=== PATIENT | male | born 1980 | race American Indian/Alaskan Native ===

== ENCOUNTER 2017-10-11 08:44 | Day surgery (SDC) | payer OTHER ==
[~2017-10-11 08:44] MED LIST: ANCEF/STERILE WATER 2 GM/20 ML IV NR; LACTATED RINGERS 1,000 ML IV SCH; VERSED IV NR
[2017-10-11] MEDS ORDERED: LACTATED RINGERS 1,000 ML IV SCH (10:00)
[2017-10-11] MEDS ORDERED: ZOFRAN IV PRN (10:00)
--- NOTE | 2017-10-11 10:01 | Anesthesia Consultation ---
Anesthesia Consult and Med Hx Date of service: 10/11/17 - Airway Anesthetic Teeth Evaluation: Good ROM Head & Neck: Adequate Mental/Hyoid Distance: Adequate Mallampati Class: Class I Intubation Access Assessment: Good - Pulmonary Exam CTA: Yes - Cardiac Exam Cardiac Exam: RRR - Pre-Operative Health Status ASA Pre-Surgery Classification: ASA2 Proposed Anesthetic Plan: General - Pulmonary Hx Smoking: Yes ([employer]IAL SMOK[employer] AND VAPS) Hx Sleep Apnea: No (NAM PRE SCREEN LOW RISK) - Cardiovascular System Hx Hypertension: No - Hematic Hx Anemia: Yes (NOT RECENT) - Other Systems Hx Cancer: No
--- NOTE | 2017-10-11 10:01 | Anesthesia Day of Surgery ---
Anesthesia Day of Surgery - Day of Surgery Patient Examined: Yes Patient H&P Reviewed: Yes Patient is NPO: Yes
[2017-10-11] MEDS ORDERED: DILAUDID ONE (10:52)
[2017-10-11] MEDS ORDERED: DIPRIVAN 10 MG/ML IV ONE (10:52)
[2017-10-11] MEDS ORDERED: XYLOCAINE MPF 2% ONE (10:53)
[2017-10-11] MEDS ORDERED: VERSED ONE (11:13)
[2017-10-11] MEDS ORDERED: ZOFRAN ONE (11:54)
--- NOTE | 2017-10-11 12:07 | Short Stay Summary ---
Short Stay Documentation Date of service: 10/11/17 - History H&P: obtained from office - Allergies and Medications Current Medications: Allergies No Known Allergies Allergy (Verified 10/04/17 11:08) Home Medications Medication Instructions Recorded Confirmed Last Taken Type Aspirin/Acetaminophen/Caffeine 1 each PO PRN PRN 10/04/17 10/11/17 09/30/17 History [Goody's Ex-Str Powder Packet] Emtricitabine/Tenofovir (Tdf) 1 tab PO PRN PRN 10/04/17 10/11/17 09/27/17 History [Truvada 100 mg-150 mg Tablet] Valacyclovir HCl [Valtrex] 1,000 mg PO PRN PRN 10/04/17 10/11/17 10/08/17 History Active Medications Cefazolin Sodium (Ancef/Sterile Water 2 Gm/20 Ml) 2 gm IV PREOP NR Stop: 10/11/17 23:59 Hydromorphone HCl (Dilaudid) 0.5 mg IV Q10MIN PRN PRN Reason: Pain , Severe (7-10) Stop: 10/11/17 18:00 Lactated Ringer's (Lactated Ringers) 1,000 mls @ 100 mls/hr IV DIRECT MIKE Last Admin: 10/11/17 09:39 Dose: 100 mls/hr Lactated Ringer's (Lactated Ringers) 1,000 mls @ 100 mls/hr IV DIRECT MIKE Midazolam HCl (Versed) 2 mg IV PREOP NR Stop: 10/11/17 23:59 Last Admin: 10/11/17 11:03 Dose: 2 mg Ondansetron HCl (Zofran) 4 mg IV ONCE PRN PRN Reason: Nausea And Vomiting Stop: 10/11/17 18:00 - Brief post op/procedure progress note Date of procedure: 10/11/17 Pre-op diagnosis: penile lesion Post-op diagnosis: same Procedure: cysto, rpg, execision CO2 ablation Anesthesia: GETA Surgeon: JEFFREY SORIA Estimated blood loss: none Pathology: list (lesion) Specimen disposition: to lab Condition: stable - Hospital course Hospital course: norco, cipro, siladene cream - Disposition Condition at discharge: Stable Disposition: DC- TO HOME OR SELFCARE Short Stay Discharge Plan Follow up with: HAILY CHEW MD [Primary Care Provider] - 7 Days
[2017-10-11] MEDS ORDERED: WATER FOR IRRIG STERILE IR ONE ×2 (12:12)
[2017-10-11] MEDS ORDERED: THERMAZENE 50 GRAM TP ONE (12:13)
[2017-10-11] MEDS: DILAUDID IV PRN ×2 (12:20→12:30)
--- NOTE | 2017-10-11 12:35 | Operative Report ---
PREOPERATIVE DIAGNOSES: Penile lesions, urinary tract infection. POSTOPERATIVE DIAGNOSES: Penile lesions, urinary tract infection. PROCEDURE: Cystoscopy, bilateral retrograde pyelograms, excision of penile lesion, and CO2 laser ablation. SURGEON: Rob Gtz MD ANESTHESIA: General. ESTIMATED BLOOD LOSS: Minimal. FLUIDS: Crystalloid. COMPLICATIONS: No complications. INDICATIONS: This 37-year-old gentleman seen in the office with multiple lesions on his penis primarily on the glans and coronal ridge. However, diffuse areas on the shaft approximately 3-5 mm in diameter. We discussed options. He agreed to proceed with surgical intervention. DESCRIPTION OF PROCEDURE: The patient was taken to the operative suite, placed in a supine position. After adequate general anesthesia, placed in a dorsal lithotomy position, prepped and draped in a sterile fashion. Pancystourethroscopy was performed with a 22-Yoruba Storz cystoscope, no urethral or prostate abnormalities. Bladder, no tumors or stones were noted. Bilateral retrograde pyelograms were obtained with an 8 [place] catheter and 8 mL of contrast. No filling defects or obstruction. These papillary lesions on the coronal ridge, 2 were excised and sent for routine pathologic evaluation using a CO2 laser starting at 5 and up to 10 cárdenas, CO2 laser ablation of the lesions on the glans and shaft of the penis were performed without difficulty. The patient tolerated the procedure well. Rectal exam was benign. Silvadene cream was placed on the lesions. He was extubated and taken to the recovery room. He will go home on Cipro, Ipava and continue Silvadene cream daily. JOB# [id number] [facility]
--- NOTE | 2017-10-11 13:15 | Fluoroscopy Report ---
FLUOROSCOPY RETROGRADE UROGRAPHY: HISTORY: Dysuria, hematuria. FINDINGS: Fluoroscopy was provided by radiology during retrograde urography by the urologist. 8 fluoroscopic images were captured. There is adequate filling of the ureters and intrarenal collecting systems with no filling defects or anatomic abnormalities identified. Please correlate with the procedural report if needed. IMPRESSION: Retrograde pyelograms within normal limits.
--- NOTE | 2017-10-11 13:34 | Post Anesthesia Evaluation ---
- Post Anesthesia Evaluation Patient Participated: Yes Airway Patent: Yes Stable Respiratory Function: Yes Nausea/Vomiting: No Temp > 96.8F: Yes Pain Manageable: Yes Adequeate Hydration: Yes Anesthesia Complications: No
[2017-10-11 16:32] VITALS: BP 108/56
== END 2017-10-11 14:05 | disposition home or self-care (01) ==
LOC: OR 08:44
PROVIDERS: ATTEND Urology
DX: L72.0 Epidermal cyst (principal); N48.29 Other inflammatory disorders of penis; N39.0 Urinary tract infection, site not specified; I10 Essential (primary) hypertension; F17.200 Nicotine dependence, unspecified, uncomplicated
CPT/HCPCS: 11421; 17110; 52005; 74420; 88305; 88331; A4217; J0690; J1170; J2250; J2405; J2704; J7120; Q9967